=== PATIENT | male | born 2000 | race Hispanic/Latino ===

== ENCOUNTER 2023-11-16 21:00 | Emergency (ER) | payer OTHER ==
[~2023-11-16] VITALS: Ht 185.4 cm; Wt 111.6 kg
[2023-11-16] MEDS ORDERED: CLIN-141 PO (23:16)
[2023-11-16] MEDS ORDERED: IBUP-2077 PO (23:16)
[2023-11-16] MEDS: IBUPROFEN 800 MG TAB PO ONE (23:25)
[2023-11-16] MEDS: HYDROCODONE/ACETAMINOPHEN 5/325 MG TAB PO ONE (23:25)
[2023-11-16 23:32] VITALS: BP 104/88; PULSE 72; RESP 18; O2SAT 99
== END 2023-11-16 23:33 | disposition home or self-care (01) ==
LOC: EDH 21:00
DX: K02.9 Dental caries, unspecified (principal)